=== PATIENT | female | born 1955 | race Two or more races ===

== ENCOUNTER 2017-09-17 09:09 | Day surgery (SDC) | payer OTHER ==
[2017-09-17] MEDS ORDERED: PROPOFOL 20 ML (10:38)
[2017-09-17] MEDS ORDERED: LIDOCAINE 2% (SDV) 5 ML INJ (10:38)
[2017-09-17] MEDS ORDERED: MIDAZOLAM 1 MG/ML 2 ML INJ (10:38)
[2017-09-17] MEDS ORDERED: FENTAnyl 50 MCG/ML VIAL (10:39)
== END 2017-09-17 12:07 | disposition home or self-care (01) ==
LOC: GIL 09:09
DX: Z12.11 Encounter for screening for malignant neoplasm of colon (principal); K21.9 Gastro-esophageal reflux disease without esophagitis; K29.70 Gastritis, unspecified, without bleeding; D12.6 Benign neoplasm of colon, unspecified; K64.8 Other hemorrhoids
CPT/HCPCS: 43239; 87081; 88305